=== PATIENT | male | born 1990 | race African-American/Black ===

== ENCOUNTER 2017-08-08 07:16 | Emergency (ER) | payer SELFPAY ==
[~2017-08-08] VITALS: Ht 180.3 cm; Wt 81.6 kg
--- NOTE | 2017-08-08 07:20 | NUR ---
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 PATIENT IS CURRENTLY AWAKE AND ALERT. BREATHING EVEN AND UNLABORED. NO SOB, NAD, VITALS STABLE. IV INTACT AND PATENT ON LAC, 16G. SAFETY AND COMFORT MEASURES IN PLACE. AWAITING MD ORDERS.
--- NOTE | 2017-08-08 07:35 | NUR ---
mason tender restoration labor at bedside for blood draw.
--- NOTE | 2017-08-08 07:45 | NUR ---
urine obtained and sent to lab.
--- NOTE | 2017-08-08 07:51 | NUR ---
CALL RECEIVED FROM TATYANA,[phone], [facility] THAT PT WAS PICKED UP FROM HIS HOUSE. PATIENT KNEW HIM WHEN ASKED
--- NOTE | 2017-08-08 07:51 | NUR ---
FRIEND, TATYANA: [phone]
[2017-08-08 08:10] LABS: BASOPHILS % (AUTO) 0.6 % (0.0-2.0); EOSINOPHILS % (AUTO) 1.8 % (0.0-6.0); HEMATOCRIT 43 % (39-51); HEMOGLOBIN 14.6 g/dL (13.5-17.5); LYMPHOCYTES # (AUTO) 1.3 /CMM (0.8-4.8); LYMPHOCYTES % (AUTO) 47.9 % (20.0-44.0); MEAN CORPUSCULAR HGB CONC 34 g/dl (31.0-36.0); MEAN CORPUSCULAR VOLUME 86 fL (80-96); MONOCYTES # (AUTO) 0.3 /CMM (0.1-1.30); NEUTROPHILS # (AUTO) 1.1 /CMM (1.8-8.9); NEUTROPHILS % (AUTO) 39.7 % (43.0-81.0); PLATELET COUNT (AUTO) 210 /CMM (150-450); RDW COEFFICIENT OF VARIATION 13.5 (11.5-15.0); RED BLOOD CELL COUNT(AUTO) 5.03 MIL/uL (4.5-6.0); WHITE BLOOD COUNT (AUTO) 2.7 K/uL (4.3-11.0)
[2017-08-08 08:18] LABS: APPEARANCE,URINE CLEAR (CLEAR); BILIRUBIN,URINE NEGATIVE (NEGATIVE); BLOOD, URINE NEGATIVE Ery/uL (NEGATIVE); COLOR,URINE YELLOW (YELLOW); KETONES,URINE NEGATIVE (NEGATIVE); LEUKOCYTE ESTERASE ,URINE NEGATIVE (NEGATIVE); NITRITE, URINE NEGATIVE (NEGATIVE); PROTEIN,URINE NEGATIVE (NEGATIVE); UGLUCOSE NEGATIVE (NEGATIVE); UROBILINOGEN,URINE 0.2 EU/dL (0.2)
[2017-08-08 08:20] LABS: CALCIUM, SERUM 9.2 mg/dL (8.5-10.1); CREATININE 1.2 mg/dL (0.6-1.3); POTASSIUM 3.7 mmol/L (3.5-5.1)
[2017-08-08 08:34] LABS: ALBUMIN 4.6 g/dL (3.4-5.0); BILIRUBIN,DIRECT 0.2 mg/dL (0.0-0.2); BILIRUBIN,TOTAL 0.7 mg/dL (0.2-1.0); TOTAL PROTEIN, SERUM 7.6 g/dL (6.4-8.2)
[2017-08-08 08:35] LABS: SALICYLATE 2.1 mg/dL (2.8-20.0)
--- NOTE | 2017-08-08 09:40 | NUR ---
IV removed. Catheter intact and site benign. Pressure and 4x4 applied to site. No bleeding noted. Patient discharged to home in stable condition. Written and verbal after care instructions given. Patient verbalizes understanding of instruction.
[2017-08-08 09:44] LABS: EOSINOPHILS % (MANUAL) 3 % (0-4); LYMPHOCYTES % (MANUAL) 17 % (16-48); MONOCYTES % (MANUAL) 3 % (0-11.0); NEUTROPHILS % (MANUAL) 77 (42-76)
[2017-08-08 09:49] VITALS: BP 117/64
== END 2017-08-08 09:49 | disposition home or self-care (01) ==
LOC: ER 07:17
DX: T41.291A Poisoning by other general anesthetics, accidental (unintentional), initial encounter (principal); Y92.89 Other specified places as the place of occurrence of the external cause
CPT/HCPCS: 36415; 80048-TC; 80076-TC; 80305; 81000-TC; 85025-TC; A4606; G0480; Z7610